=== PATIENT | female | born 2005 | race Caucasian/White ===

== ENCOUNTER 2023-06-01 13:56 | Emergency (ER) | payer MEDICAID ==
[~2023-06-01] VITALS: Ht 160 cm; Wt 87.0 kg
[2023-06-01 13:58] VITALS: BP 147/88; PULSE 104; RESP 16; TEMP 98.7; O2SAT 98
[2023-06-01] MEDS ORDERED: TETANUS, DIPHTHERIA, PERTUSSIS VAC/PF 0.5ML (>10YR OLD) IM ONE (17:15)
[2023-06-01] MEDS ORDERED: LIDOCAINE HCL/PF 1% 10 MG/ML 5ML VIAL INFIL ONE (17:15)
[2023-06-01] MEDS ORDERED: BACITRACIN ZINC OINT UDPKT TOP ONE (17:15)
[2023-06-01] MEDS ORDERED: ACET-2708 MT (19:31)
[2023-06-01] MEDS ORDERED: NAPR-681 MT (19:31)
[2023-06-01] MEDS ORDERED: CIPR500T5 MT (19:31)
== END 2023-06-01 20:05 | disposition home or self-care (01) ==
LOC: ER 13:56
DX: S00.431A Contusion of right ear, initial encounter (principal); S43.101A Unspecified dislocation of right acromioclavicular joint, initial encounter; Y08.89XA Assault by other specified means, initial encounter; Y93.89 Activity, other specified; Y92.89 Other specified places as the place of occurrence of the external cause; Y99.8 Other external cause status
CPT/HCPCS: 73030; 73080; 73110; 73130; 70450; 70486; 72125; 90715; 10060; 99284; J3490; Z7610 ×2